=== PATIENT | male | born 1985 | race Caucasian/White ===

== ENCOUNTER 2017-01-27 07:24 | Emergency (ER) | payer MEDICARE, MEDICAID ==
[2017-01-27 08:23] LABS: Hematocrit 42 % (42-52); Hemoglobin 14.3 g/dl (14.0-18.0); Mean Corpuscular HGB Conc 34 g/dl (31-36); Mean Corpuscular Hemoglobin 30 pg (27-31); Mean Corpuscular Volume 88 fL (80-94); Mean Platelet Volume 8 um3 (7.4-10.4); Red Blood Count 4.75 10^6/ul (4.0-5.4); Red Cell Distribution Width 13 % (10.5-15); White Blood Count 5.1 10^3/ul (3.5-10.8)
[2017-01-27 08:41] LABS: Albumin 4.7 g/dL (3.2-5.2); BUN/Creatinine Ratio 11.7 (8-20); C Reactive Protein 1.69 mg/L (< 5.00); Calcium 9.9 mg/dL (8.6-10.3); EGFR Non-African American 56.8 (>60); Globulin 2.3 g/dL (2-4); Potassium 4.3 mmol/L (3.5-5.0); Total Bilirubin 0.5 mg/dL (0.2-1.0)
--- NOTE | 2017-01-27 09:02 | RAD ---
INDICATION: Shortness of breath. COMPARISON: Correlation is made with prior chest x-ray studies from December 01, 2014 and December 13, 2014. TECHNIQUE: Dual-energy PA and lateral views of the chest were obtained. FINDINGS: There has been interval removal of a cardiac pacemaker. The patient is status post sternotomy. The heart is within normal limits in size. The lungs are hyperinflated and clear. No pleural effusion is seen. IMPRESSION: POSTSURGICAL CHANGES AND FINDINGS SUGGESTIVE OF COPD, NO EVIDENCE FOR ACUTE FINDING.
[2017-01-27 09:09] LABS: TSH (Thyroid Stimulating Horm) 2.15 mcIU/mL (0.34-5.60)
[2017-01-27 09:16] LABS: Free T4 1.21 ng/dL (0.61-1.12)
[2017-01-27 10:14] VITALS: BP 114/82
--- NOTE | 2017-01-27 18:18 | ED ---
Todd Richards Thomas, scribed for Kendell Jaramillo MD on 01/27/17 at 0807 . Shortness of Breath - HPI Summary HPI Summary: The pt is a 31 y/o M presenting to the ED c/o new-onset SOB that has been intermittent for 2 days. The SOB began when he was sleeping. He says that it is not feeling like I am getting the oxygen needed to breath. He has not had these symptoms before. He denies recent travel. He states that he is active fine in the last few days. He has not had rejection of his heart. He had a biopsy 11 days ago of his heart and there was 0% rejection. Pt additionally c/o nausea (lately when eating). Pt denies CP, abd pain, fever, cough, vomiting, and pedal edema. PMHx: congenital heart disease, thyroid medication, PSHx: heart transplant (at [place], 9 months ago, [address] Chew). SHx: no smoking, no drugs, no illicit drugs. The number of his program coordinator for residence life is . - History of Current Complaint Chief Complaint: EDShortnessOfBreath Time Seen by Provider: 01/27/17 07:49 Hx Obtained From: Patient Onset/Duration: Sudden Onset, Lasting Days - 2 days, Still Present Aggrevating Factors: Nothing Alleviating Factors: Nothing - Allergy/Home Medications Allergies/Adverse Reactions: Allergies Allergy/AdvReac Type Severity Reaction Status Date / Time Carvedilol [From Coreg] Allergy Intermediate Itching Verified 12/13/14 21:11 PMH/Surg Hx/FS Hx/Imm Hx Previously Healthy: No Endocrine/Hematology History: Reports: Hx Thyroid Disease Denies: Hx Anemia, Hx Unexplained Bleeding Cardiovascular History: Reports: Hx Congenital Heart Disease - "enlarged heart" per pt, Other Cardiovascular Problems/Disorders - hx cardiomyopathy, had cardiac catheterization 12/06/2014 at [facility] Denies: Hx Aneurysm, Hx Angina, Hx Angioplasty, Hx Auto Implanted Cardiovert Defib, Hx Cardiac Arrest, Hx Cardiomegaly, Hx Congestive Heart Failure, Hx Coronary Artery Disease, Hx Deep Vein Thrombosis, Hx Embolism, Hx Hypercholesterolemia, Hx Hypotension, Hx Hypertension, Hx Peripheral Vascular Disease, Hx Rheumatic Fever, Hx Syncope, Hx Valvular Heart Disease History: Denies: Hx Acute Renal Failure, Hx Benign Prostatic Hyperplasia, Hx Chronic Renal Failure, Hx Dialysis, Hx Kidney Infection, Hx Kidney Stones Musculoskeletal History: Reports: Hx Back Problems, Hx Scoliosis, Other Musculoskeletal History - pectus excavatum Denies: Hx Arthritis, Hx Bursitis, Hx Congenital Bone Abnormalities, Hx Fibromyalgia, Hx Gout, Hx Orthopedic Injury, Hx Osteoporosis, Hx Tendonitis Sensory History: Reports: Hx Contacts or Glasses Denies: Hx Cataracts, Hx Eye Injury, Hx Eye Prosthesis, Hx Glaucoma, Hx Legally Blind, Hx Macular Degeneration, Hx Vision Problem, Hx Deafness, Hx Hearing Aid, Hx Hearing Problem, Other Sensory Impairments Opthamlomology History: Reports: Hx Contacts or Glasses Denies: Hx Cataracts, Hx Eye Injury, Hx Eye Prosthesis, Hx Glaucoma, Hx Legally Blind, Hx Macular Degeneration, Hx Vision Problem, Other Sensory Impairments Neurological History: Denies: Hx Dementia, Hx Developmental Delay, Hx Headaches, Hx Migraine, Hx Nerve Disease, Hx Seizures, Hx Spinal Cord Injury, Hx Transient Ischemic Attacks (TIA), Other Neuro Impairments/Disorders - Surgical History Surgery Procedure, Year, and Place: Heart transplant, pectus excavatum repair, pacer/defib, Hx Anesthesia Reactions: No Infectious Disease History: No Infectious Disease History: Denies: Hx Clostridium Difficile, Hx Hepatitis, Hx Human Immunodeficiency Virus (HIV), Hx of Known/Suspected MRSA, Hx Shingles, Hx Tuberculosis, Hx Known/ Suspected VRE, Hx Known/Suspected VRSA, History Other Infectious Disease, Traveled Outside the [place] in Last 30 Days - Family History Known Family History: Positive: Other - POS: patient reports that it is unknown - Social History Alcohol Use: None Substance Use Type: Reports: None Hx Tobacco Use: No Smoking Status (MU): Never Smoked Tobacco Have You Smoked in the Last Year: No Review of Systems Constitutional: Negative Negative: Fever Eyes: Negative ENT: Negative Cardiovascular: Negative Negative: Chest Pain, Other Positive: Shortness Of Breath - new-onset, intermittent, began 2 days ago Positive: Nausea - lately when eating. Negative: Abdominal Pain Genitourinary: Negative Musculoskeletal: Negative Negative: Edema - pedal Skin: Negative Neurological: Negative Psychological: Normal All Other Systems Reviewed And Are Negative: Yes Physical Exam - Summary Physical Exam Summary: VITAL SIGNS: Reviewed. GENERAL: ~Patient is a well-developed and nourished male who is lying comfortable in the stretcher. ~Patient is not in any acute respiratory distress. HEAD AND FACE: No signs of trauma. ~No ecchymosis, hematomas or skull depressions. No sinus tenderness. EYES: PERRLA, EOMI x 2, No injected conjunctiva, no nystagmus. EARS: Hearing grossly intact. Ear canals and tympanic membranes are within normal limits. MOUTH: Oropharynx within normal limits. NECK: Supple, trachea is midline, no adenopathy, no JVD, no carotid bruit, no c- spine tenderness, neck with full ROM. CHEST: The incisions on his chest from his heart transplant are well-healed, dry , and intact. Symmetric, no tenderness at palpation LUNGS: Clear to auscultation bilaterally. No wheezing or crackles. CVS: Regular rate and rhythm, S1 and S2 present, no murmurs or gallops appreciated. ABDOMEN: Soft, non-tender. No signs of distention. No rebound no guarding, and no masses palpated. Bowel sounds are normal. EXTREMITIES: FROM in all major joints, no edema, no cyanosis or clubbing. NEURO: Alert and oriented x 3. No acute neurological deficits. Speech is normal and follows commands. SKIN: Dry and warm Triage Information Reviewed: Yes Vital Signs On Initial Exam: Initial Vitals Temp Pulse Resp BP Pulse Ox 97.2 F 93 16 115/79 98 01/27/17 07:26 01/27/17 07:26 01/27/17 07:26 01/27/17 07:26 01/27/17 07:26 Vital Signs Reviewed: Yes Diagnostics - Vital Signs Vital Signs Temp Pulse Resp BP Pulse Ox 01/27/17 07:26 97.2 F 93 16 115/79 98 - Laboratory Lab Results: Lab Results 01/27/17 01/27/17 01/27/17 Range/Units 08:10 08:10 08:10 WBC 5.1 (3.5-10.8) 10^3/ul RBC 4.75 (4.0-5.4) 10^6/ul Hgb 14.3 (14.0-18.0) g/dl Hct 42 (42-52) % MCV 88 (80-94) fL MCH 30 (27-31) pg MCHC 34 (31-36) g/dl RDW 13 (10.5-15) % Plt Count 156 (150-450) 10^3/ul MPV 8 (7.4-10.4) um3 Neut % (Auto) 61.7 (38-83) % Lymph % (Auto) 23.0 L (25-47) % [place] % (Auto) 11.8 H (1-9) % Eos % (Auto) 2.8 (0-6) % Baso % (Auto) 0.7 (0-2) % Absolute Neuts (auto) 3.2 (1.5-7.7) 10^3/ul Absolute Lymphs (auto) 1.2 (1.0-4.8) 10^3/ul Absolute Monos (auto) 0.6 (0-0.8) 10^3/ul Absolute Eos (auto) 0.1 (0-0.6) 10^3/ul Absolute Basos (auto) 0 (0-0.2) 10^3/ul Absolute Nucleated RBC 0.02 10^3/ul Nucleated RBC % 0.3 Sodium 137 (133-145) mmol/L Potassium 4.3 (3.5-5.0) mmol/L Chloride 104 (101-111) mmol/L Carbon Dioxide 25 (22-32) mmol/L Anion Gap 8 (2-11) mmol/L BUN 17 (6-24) mg/dL Creatinine 1.45 H (0.67-1.17) mg/dL Est GFR ( Amer) 73.0 (>60) Est GFR (Non-Af Amer) 56.8 (>60) BUN/Creatinine Ratio 11.7 (8-20) Glucose 98 (70-100) mg/dL Calcium 9.9 (8.6-10.3) mg/dL Total Bilirubin 0.50 (0.2-1.0) mg/dL AST 20 (13-39) U/L ALT 21 (7-52) U/L Alkaline Phosphatase 52 (34-104) U/L Total Creatine Kinase 47 (10-223) U/L Troponin I 0.00 (<0.04) ng/mL C-Reactive Protein 1.69 (< 5.00) mg/L B-Natriuretic Peptide 37 ( - 100) pg/mL Total Protein 7.0 (6.4-8.9) g/dL Albumin 4.7 (3.2-5.2) g/dL Globulin 2.3 (2-4) g/dL Albumin/Globulin Ratio 2.0 (1-3) TSH 2.15 (0.34-5.60) mcIU/mL Free T4 1.21 H (0.61-1.12) ng/dL Influenza A (Rapid) (Negative) Influenza B (Rapid) (Negative) Group A Strep Rapid (Negative) 01/27/17 01/27/17 Range/Units 08:50 09:02 WBC (3.5-10.8) 10^3/ul RBC (4.0-5.4) 10^6/ul Hgb (14.0-18.0) g/dl Hct (42-52) % MCV (80-94) fL MCH (27-31) pg MCHC (31-36) g/dl RDW (10.5-15) % Plt Count (150-450) 10^3/ul MPV (7.4-10.4) um3 Neut % (Auto) (38-83) % Lymph % (Auto) (25-47) % [place] % (Auto) (1-9) % Eos % (Auto) (0-6) % Baso % (Auto) (0-2) % Absolute Neuts (auto) (1.5-7.7) 10^3/ul Absolute Lymphs (auto) (1.0-4.8) 10^3/ul Absolute Monos (auto) (0-0.8) 10^3/ul Absolute Eos (auto) (0-0.6) 10^3/ul Absolute Basos (auto) (0-0.2) 10^3/ul Absolute Nucleated RBC 10^3/ul Nucleated RBC % Sodium (133-145) mmol/L Potassium (3.5-5.0) mmol/L Chloride (101-111) mmol/L Carbon Dioxide (22-32) mmol/L Anion Gap (2-11) mmol/L BUN (6-24) mg/dL Creatinine (0.67-1.17) mg/dL Est GFR ( Amer) (>60) Est GFR (Non-Af Amer) (>60) BUN/Creatinine Ratio (8-20) Glucose (70-100) mg/dL Calcium (8.6-10.3) mg/dL Total Bilirubin (0.2-1.0) mg/dL AST (13-39) U/L ALT (7-52) U/L Alkaline Phosphatase (34-104) U/L Total Creatine Kinase (10-223) U/L Troponin I (<0.04) ng/mL C-Reactive Protein (< 5.00) mg/L B-Natriuretic Peptide ( - 100) pg/mL Total Protein (6.4-8.9) g/dL Albumin (3.2-5.2) g/dL Globulin (2-4) g/dL Albumin/Globulin Ratio (1-3) TSH (0.34-5.60) mcIU/mL Free T4 (0.61-1.12) ng/dL Influenza A (Rapid) Negative (Negative) Influenza B (Rapid) Negative (Negative) Group A Strep Rapid Negative (Negative) Result Diagrams: 01/27/17 08:10 01/27/17 08:10 Lab Statement: Any lab studies that have been ordered have been reviewed, and results considered in the medical decision making process. - Radiology CXR Xray Interpretation: Positive (See Comments) - POSTSURGICAL CHANGES AND FINDINGS SUGGESTIVE OF COPD, NO EVIDENCE FOR ACUTE FINDING. Radiology Interpretation Completed By: Radiologist Course/Dx - Course Assessment/Plan: The pt is a 31 y/o M presenting to the ED c/o new-onset SOB that has been intermittent for 2 days. The SOB began when he was sleeping. He says that it is not feeling like I am getting the oxygen needed to breath. He has not had these symptoms before. He denies recent travel. He states that he is active fine in the last few days. He has not had rejection of his heart. He had a biopsy 11 days ago of his heart and there was 0% rejection. Pt additionally c/o nausea (lately when eating). Pt denies CP, abd pain, fever, cough, vomiting, and pedal edema. PMHx: congenital heart disease, thyroid medication,. PSHx: heart transplant (at [place], 9 months ago, [address] Chew). SHx: no smoking, no drugs, no illicit drugs. The number of his program coordinator for residence life is . The test results are without significant abnormalities except a creatinine of 1.45 and Free T4 of 1.21. Rapid strep was negative and Influenza A and B were negative. CXR reveals POSTSURGICAL CHANGES AND FINDINGS SUGGESTIVE OF COPD, NO EVIDENCE FOR ACUTE FINDING. In the Ed course the patients vital signs were stable and the SatO2 was 100 on Ra. The patient is not ill-appering or toxic-appearing. I discussed his case with an WINDOW COVERING SALES CONSULTANT , Ms. Adhikari, at the transplant group that the patient is seeing, and she reports that the patient has been having these symptoms for almost a month. Recently he had a biopsy where they noticed that the patient had a 0% rejection of his new heart and all of the labs were within normal limits. She thinks that the patient has slight anxiety and that is the reason for continued shortness of breath. Therefore, he recommends that the patient be discharged home. He will follow-up tomorrow at the provider contracting consultant office and if needed today the patient can call her at any time. He is hemodynamically stable and A&Ox3. - Diagnoses Differential Diagnosis/HQI/PQRI: Positive: Asthma, Bronchitis, CHF, Chest Wall Pain, Pneumonia, Pneumothorax Provider Diagnoses: Dyspnea - Physician Notifications Discussed Care of Patient With: Jasmin Adhikari Instructed by Provider To: Other - Recommended that the patient be discharged because he has been having these Sx for a month. She speculats that he has slight anxiety. She made herself available to be called the rest of today. Discharge - Discharge Plan Condition: Stable Disposition: HOME Patient Education Materials: Dyspnea (ED) Referrals: Charmaine Valente MD [Primary Care Provider] - 3 Days The documentation as recorded by the [facility] accurately reflects the service I personally performed and the decisions made by me, Kendell Jaramillo MD.
== END 2017-01-27 10:14 | disposition home or self-care (01) ==
LOC: ED 07:24
DX: R06.00 Dyspnea, unspecified (principal); R11.0 Nausea
CPT/HCPCS: 36415; 71020; 80053; 80197; 82550; 83880; 84439; 84443; 84484; 85025; 86140; 87502; 87651; 99282

== ENCOUNTER 2019-01-27 23:20 | Emergency (ER) | payer MEDICARE, MEDICAID ==
[2019-01-28 00:24] LABS: Rapid Strep Molecular Negative (Negative)
[2019-01-28 00:43] VITALS: BP 116/77
--- NOTE | 2019-01-28 03:32 | ED ---
Throat Pain/Nasal Congestion - HPI Summary HPI Summary: The pt is a 33 yr old male presenting to [facility] c/o throat discomfort and enlarged lymph nodes beginning 3 days ago. He states that his throat feels "tight". Patient denies any fever or pain. He is concerned about these Sx as he is currently taking immunosuppressants. He mentions that he had a heart transplant in 2016. - History of Current Complaint Chief Complaint: EDThroatPain Time Seen by Provider: 01/27/19 23:39 Hx Obtained From: Patient Onset/Duration: Sudden Onset, Lasting Days - 3, Still Present Severity: Mild Associated Signs And Symptoms: Positive: Negative Cough: None - Allergies/Home Medications Allergies/Adverse Reactions: Allergies Allergy/AdvReac Type Severity Reaction Status Date / Time carvedilol [From Coreg] Allergy Itching Verified 01/27/19 23:28 PMH/Surg Hx/FS Hx/Imm Hx Endocrine/Hematology History: Reports: Hx Thyroid Disease Denies: Hx Anemia, Hx Unexplained Bleeding Cardiovascular History: Reports: Hx Congenital Heart Disease - "enlarged heart" per pt, Hx Pacemaker/ICD, Other Cardiovascular Problems/Disorders - hx cardiomyopathy, had cardiac catheterization 12/06/2014 at [facility] Denies: Hx Aneurysm, Hx Angina, Hx Angioplasty, Hx Auto Implanted Cardiovert Defib, Hx Cardiac Arrest, Hx Cardiomegaly, Hx Congestive Heart Failure, Hx Coronary Artery Disease, Hx Deep Vein Thrombosis, Hx Embolism, Hx Hypercholesterolemia, Hx Hypotension, Hx Hypertension, Hx Peripheral Vascular Disease, Hx Rheumatic Fever, Hx Syncope, Hx Valvular Heart Disease History: Denies: Hx Acute Renal Failure, Hx Benign Prostatic Hyperplasia, Hx Chronic Renal Failure, Hx Dialysis, Hx Kidney Infection, Hx Kidney Stones Musculoskeletal History: Reports: Hx Back Problems, Hx Scoliosis, Other Musculoskeletal History - pectus excavatum Denies: Hx Arthritis, Hx Bursitis, Hx Congenital Bone Abnormalities, Hx Fibromyalgia, Hx Gout, Hx Orthopedic Injury, Hx Osteoporosis, Hx Tendonitis Sensory History: Reports: Hx Contacts or Glasses Denies: Hx Cataracts, Hx Eye Injury, Hx Eye Prosthesis, Hx Glaucoma, Hx Legally Blind, Hx Macular Degeneration, Hx Vision Problem, Hx Deafness, Hx Hearing Aid, Hx Hearing Problem, Other Sensory Impairments Opthamlomology History: Reports: Hx Contacts or Glasses Denies: Hx Cataracts, Hx Eye Injury, Hx Eye Prosthesis, Hx Glaucoma, Hx Legally Blind, Hx Macular Degeneration, Hx Vision Problem, Other Sensory Impairments Neurological History: Denies: Hx Dementia, Hx Developmental Delay, Hx Headaches, Hx Migraine, Hx Nerve Disease, Hx Seizures, Hx Spinal Cord Injury, Hx Transient Ischemic Attacks (TIA), Other Neuro Impairments/Disorders - Surgical History Surgery Procedure, Year, and Place: Heart transplant, pectus excavatum repair, pacer/defib, Hx Anesthesia Reactions: No - Immunization History Immunizations Up to Date: Yes Infectious Disease History: No Infectious Disease History: Denies: Hx Clostridium Difficile, Hx Hepatitis, Hx Human Immunodeficiency Virus (HIV), Hx of Known/Suspected MRSA, Hx Shingles, Hx Tuberculosis, Hx Known/ Suspected VRE, Hx Known/Suspected VRSA, History Other Infectious Disease, Traveled Outside the [place] in Last 30 Days - Family History Known Family History: Positive: Other - POS: patient reports that it is unknown - Social History Alcohol Use: None Substance Use Type: Reports: None Hx Tobacco Use: No Smoking Status (MU): Former Smoker Have You Smoked in the Last Year: No Review of Systems Negative: Fever Positive: Sore Throat, Other - Positive - "tightness" in throat, "feeling of [place] lymph nodes" All Other Systems Reviewed And Are Negative: Yes Physical Exam - Summary Physical Exam Summary: VITAL SIGNS: Reviewed. GENERAL: Patient is a well-developed and nourished male who is lying comfortable in the stretcher. Patient is not in any acute respiratory distress. HEAD AND FACE: No signs of trauma. No ecchymosis, hematomas or skull depressions. No sinus tenderness. EYES: PERRLA, EOMI x 2, No injected conjunctiva, no nystagmus. EARS: Hearing grossly intact. Ear canals and tympanic membranes are within normal limits. MOUTH: Oropharynx within normal limits. NECK: Supple, trachea is midline, no adenopathy, no JVD, no carotid bruit, no c- spine tenderness, neck with full ROM normal THROAT: no lymph adenopathy, no swelling, no tenderness CHEST: Symmetric, no tenderness at palpation LUNGS: Clear to auscultation bilaterally. No wheezing or crackles. CVS: Regular rate and rhythm, S1 and S2 present, no murmurs or gallops appreciated. ABDOMEN: Soft, non-tender. No signs of distention. No rebound no guarding, and no masses palpated. Bowel sounds are normal. EXTREMITIES: FROM in all major joints, no edema, no cyanosis or clubbing. NEURO: Alert and oriented x 3. No acute neurological deficits. Speech is normal and follows commands. SKIN: Dry and warm Triage Information Reviewed: Yes Vital Signs On Initial Exam: Initial Vitals Temp Pulse Resp BP Pulse Ox 97.7 F 99 16 130/94 99 01/27/19 23:25 01/27/19 23:25 01/27/19 23:25 01/27/19 23:25 01/27/19 23:25 Vital Signs Reviewed: Yes Diagnostics - Vital Signs Vital Signs Temp Pulse Resp BP Pulse Ox 01/28/19 00:41 97.9 F 90 18 116/77 96 01/28/19 00:19 116/77 01/27/19 23:50 102 95 01/27/19 23:49 96 121/86 97 01/27/19 23:25 97.7 F 99 16 130/94 99 - Laboratory Lab Results: Lab Results 01/27/19 Range/Units 23:54 Group A Strep Rapid Negative (Negative) Lab Statement: Any lab studies that have been ordered have been reviewed, and results considered in the medical decision making process. EENT Course/Dx - Course Course Of Treatment: The pt is a 33 yr old male presenting to [facility] c/o throat discomfort and enlarged lymph nodes beginning 3 days ago. He states that his throat feels "tight". Patient denies any fever or pain. He is concerned about these Sx as he is currently taking immunosuppressants. He mentions that he had a heart transplant in 2016. Test results with no significant abnormalities. Group A Rapid Strep test returned negative. The pt was discharged home and advised to follow up with PCP within 3 days. - Diagnoses Provider Diagnoses: Neck pain Discharge - Sign-Out/Discharge Documenting (check all that apply): Patient Departure - Discharge Patient Received Moderate/Deep Sedation with Procedure: No - Discharge Plan Condition: Stable Disposition: HOME Patient Education Materials: Neck Pain (ED) Referrals: Jasmin Adhikari, [employer] [Primary Care Provider] - 3 Days Additional Instructions: PLEASE RETURN TO THE ED IMMEDIATELY FOR WORSENING OR CONCERNING SYMPTOMS. FOLLOW UP WITH PRIMARY CARE PHYSICIAN WITHIN 3 DAYS. - Attestation Statements Document Initiated by Scribe: Yes Documenting Scribe: YOVANI SANDERS Provider For Whom Scribe is Documenting (Include Credential): FRANNY WILKINS MD Scribe Attestation: YOVANI Richards, scribed for FRANNY WILKINS MD on 01/28/19 at 0409. Status of Scribe Document: Ready
== END 2019-01-28 00:41 | disposition home or self-care (01) ==
LOC: ED 23:20
DX: M54.2 Cervicalgia (principal); Z88.8 Allergy status to other drugs, medicaments and biological substances; E07.9 Disorder of thyroid, unspecified; Q24.9 Congenital malformation of heart, unspecified; Z79.899 Other long term (current) drug therapy; Z94.1 Heart transplant status; Z87.891 Personal history of nicotine dependence
CPT/HCPCS: 87651; 99282